=== PATIENT | female | born 1995 | race Caucasian/White ===

== ENCOUNTER 2018-02-23 08:45 | Emergency (ER) | payer OTHER ==
[~2018-02-23] VITALS: Ht 162.6 cm; Wt 54.5 kg
[~2018-02-23 08:45] MED LIST: ESCI1TAB10 PO; MULT-513 PO; OMEP20CA9 PO; ONDA4TAB10 SL
[2018-02-23] MEDS ORDERED: SODIUM CHLORIDE 0.9% 1000ML 1,000 ML IV STA (08:58)
[2018-02-23] MEDS ORDERED: ONDANSETRON INJ 2 MG/ML 2 ML VIAL IV STA (08:58)
[2018-02-23 09:22] LABS: BASO % 0.2 %; BASO ABS # 0.01 K/uL (0-0.2); HEMATOCRIT 38.1 % (37-47); IG# 0.01 K/uL (0.00-0.02); LYMPH % 15.9 %; LYMPH ABS # 0.79 K/uL (1.2-3.4); MEAN CELL VOLUME 80.7 fL (80-100); MEAN CORPUSCULAR HEMOGLOBIN 27.5 pg (25-34); MEAN CORPUSCULAR HGB CONC 34.1 g/dl (32-36); MEAN PLATELET VOLUME 9.7 fL (7.4-10.4); MONO % 8.7 %; MONO ABS # 0.43 K/uL (0.11-0.59); NEUT ABS # 3.72 K/uL (1.4-6.5); PLATELET COUNT 282 K/uL (130-400); RED CELL DISTRIBUTION WIDTH CV 14.2 % (11.5-14.5); RED CELL DISTRIBUTION WIDTH SD 42.3 fL (36.4-46.3); WHITE BLOOD COUNT 4.96 K/uL (4.8-10.8)
[2018-02-23 09:44] LABS: ALBUMIN 3.9 gm/dl (3.4-5.0); CALCIUM 9.2 mg/dl (8.5-10.1); CREATININE 0.8 mg/dl (0.60-1.20); POTASSIUM 2.8 mmol/L (3.5-5.1); TOTAL PROTEIN 8.3 gm/dl (6.4-8.2)
[2018-02-23] MEDS ORDERED: POTASSIUM CHLORIDE 10 MEQ / 100ML WTR IV STA (09:59)
[2018-02-23] MEDS ORDERED: CIPROFLOXACIN 400MG / 200ML D5W IV STA (10:21)
--- NOTE | 2018-02-23 10:30 | EMERGENCY ROOM VISIT NOTE ---
History Report prepared by Darrion: Trung Mccain Under the Supervision of: Dr. Shivam Castellanos M.D. First contact with patient: 08:53 Chief Complaint: VOMITING Stated Complaint: VOMITING, DIARRHEA History of Present Illness The patient is a 22 year old female who presents to the Emergency Room with complaints of intermittent vomiting and diarrhea beginning two days ago. She also complains of abdominal pain, cough, nausea, and subjective fevers. The patient was seen in the ED two days ago for similar symptoms and was discharged on Zofran. She states that the Zofran helped briefly, but she stopped taking it after four doses. She believes she got food poisoning from pork at a picnic she attended three days ago. The patient denies dark colored vomit, or black/bloody stool. Source of History: patient Onset: Two days ago Quality: other (vomiting and diarrhea) Timing: intermittent Associated Symptoms: + fevers (subjective), + cough, + nausea, + abdominal pain, No melena, No hematochezia Note: The patient denies dark colored vomit. Review of Systems See HPI for pertinent positives and negatives. A total of ten systems were reviewed and were otherwise negative. Past Medical & Surgical Medical Problems: (1) Acid reflux (2) Hiatal hernia (3) Intractable vomiting with nausea Family History No pertinent family history stated. Social History Smoking Status: Never Smoker Alcohol Use: occasionally Marital Status: single Housing Status: lives with family Occupation Status: employed, student Current/Historical Medications Scheduled Escitalopram Oxalate (Lexapro), 20 MG PO DAILY Multivitamins/Minerals (Mvi With Minerals), 1 TAB PO DAILY Omeprazole (Prilosec), 20 MG PO DAILY Ondasetron Odt (Zofran Odt), 4 MG SL Q6H Allergies Coded Allergies: Penicillins (Unverified Allergy, Unknown, RASH, 02/23/18) Physical Exam Vital Signs Date Time Temp Pulse Resp B/P (MAP) Pulse Ox O2 Delivery O2 Flow Rate FiO2 02/23/18 10:55 100 Room Air 02/23/18 10:21 74 02/23/18 10:18 65 20 101/60 100 Room Air 02/23/18 08:49 36.7 102 20 100/72 100 Room Air Physical Exam .pePhysical Exam GENERAL: She is oriented to person, place, and time. She appears well- developed and well-nourished. She does not appear distressed. HENT: Exam performed. Head: Normocephalic and atraumatic. Right Ear: External ear normal. No mastoid tenderness. Left Ear: External ear normal. No mastoid tenderness. Mouth/Throat: The oropharynx is clear and moist. No trismus in the jaw. No dental abscesses or uvula swelling. No oropharyngeal exudate or tonsillar abscesses. EYES: Conjunctivae and EOM are normal. Pupils are equal, round, and reactive to light. Right eye exhibits no discharge. Left eye exhibits no discharge. No scleral icterus. NECK: Normal range of motion. Neck supple. No JVD present. No spinous process tenderness present. No carotid bruit present. No rigidity. No tracheal deviation and normal range of motion present. No Brudzinski's sign and no Kernig 's sign noted. CV: Normal rate, regular rhythm, normal heart sounds and intact distal pulses. There is no peripheral edema. Palpable radial pulses bue. PULM/CHEST: Effort normal and breath sounds normal. No respiratory distress. No stridor. She has no wheezes. She has no rales. Chest Wall: She exhibits no tenderness. ABD: The abdomen is soft. Bowel sounds are normal. She has no distension. No mass is present. There is no tenderness. There is no rebound, no guarding, no Colorado's sign and no tenderness at McBurney's point. Rovsig negative MUSC/SKEL: Normal range of motion. There is no peripheral edema, tenderness or deformity. LYMPH: No cervical adenopathy. NEURO: She is alert and oriented to person, place, and time. She has normal strength. No cranial nerve deficit or sensory deficit. Coordination and gait normal. GCS eye subscore is 4. GCS verbal subscore is 5. GCS motor subscore is 6. Cerebellar tests wnl. SKIN: Skin is warm and dry. She is not diaphoretic. PSYCH: She has a normal mood and affect. Behavior is normal. Judgment and thought content normal. Medical Decision & Procedures Laboratory Results 02/23/18 09:10 Red Blood Count 4.72, Mean Corpuscular Volume 80.7, Mean Corpuscular Hemoglobin 27.5, Mean Corpuscular Hemoglobin Concent 34.1, Mean Platelet Volume 9.7, Neutrophils (%) (Auto) 75.0, Lymphocytes (%) (Auto) 15.9, Monocytes (%) (Auto) 8.7, Eosinophils (%) (Auto) 0.0, Basophils (%) (Auto) 0.2, Neutrophils # (Auto) 3.72, Lymphocytes # (Auto) 0.79, Monocytes # (Auto) 0.43, Eosinophils # (Auto) 0.00, Basophils # (Auto) 0.01 02/23/18 09:10 Test 02/23/18 09:10 02/23/18 09:50 02/23/18 11:07 White Blood Count 4.96 K/uL (4.8-10.8) Red Blood Count 4.72 M/uL (4.2-5.4) Hemoglobin 13.0 g/dL (12.0-16.0) Hematocrit 38.1 % (37-47) Mean Corpuscular Volume 80.7 fL (80-100) Mean Corpuscular Hemoglobin 27.5 pg (25-34) Mean Corpuscular Hemoglobin Concent 34.1 g/dl (32-36) Platelet Count 282 K/uL (130-400) Mean Platelet Volume 9.7 fL (7.4-10.4) Neutrophils (%) (Auto) 75.0 % Lymphocytes (%) (Auto) 15.9 % Monocytes (%) (Auto) 8.7 % Eosinophils (%) (Auto) 0.0 % Basophils (%) (Auto) 0.2 % Neutrophils # (Auto) 3.72 K/uL (1.4-6.5) Lymphocytes # (Auto) 0.79 K/uL (1.2-3.4) Monocytes # (Auto) 0.43 K/uL (0.11-0.59) Eosinophils # (Auto) 0.00 K/uL (0-0.5) Basophils # (Auto) 0.01 K/uL (0-0.2) RDW Standard Deviation 42.3 fL (36.4-46.3) RDW Coefficient of Variation 14.2 % (11.5-14.5) Immature Granulocyte % (Auto) 0.2 % Immature Granulocyte # (Auto) 0.01 K/uL (0.00-0.02) Anion Gap 11.0 mmol/L (3-11) Est Creatinine Clear Calc Drug Dose 95.7 ml/min Estimated GFR () 122.2 Estimated GFR (Non- 105.4 BUN/Creatinine Ratio 8.6 (10-20) Lactic Acid Level 1.7 mmol/L (0.4-2.0) Calcium Level 9.2 mg/dl (8.5-10.1) Magnesium Level 1.8 mg/dl (1.8-2.4) Total Bilirubin 0.6 mg/dl (0.2-1) Direct Bilirubin 0.2 mg/dl (0-0.2) Aspartate Amino Transf (AST/SGOT) 14 U/L (15-37) Alanine Aminotransferase (ALT/SGPT) 15 U/L (12-78) Alkaline Phosphatase 51 U/L (45-117) Total Protein 8.3 gm/dl (6.4-8.2) Albumin 3.9 gm/dl (3.4-5.0) Lipase 72 U/L (73-393) Urine Color DK YELLOW Urine Appearance CLOUDY (CLEAR) Urine pH 6.0 (4.5-7.5) Urine Specific [place] 1.024 (1.000-1.030) Urine Protein 1+ (NEG) Urine Glucose (UA) NEG (NEG) Urine Ketones 3+ (NEG) Urine Occult Blood 3+ (NEG) Urine Nitrite NEG (NEG) Urine Bilirubin NEG (NEG) Urine Urobilinogen NEG (NEG) Urine Leukocyte Esterase TRACE (NEG) Urine WBC (Auto) 5-10 /hpf (0-5) Urine RBC (Auto) 5-10 /hpf (0-4) Urine Hyaline Casts (Auto) /lpf (0-5) Urine Epithelial Cells (Auto) >30 /lpf (0-5) Urine Bacteria (Auto) 2+ (NEG) Urine Renal Epithelial Cells /lpf (0-5) Urine Pathogenic Casts /lpf (0) Urine Mucus PRESENT (NONE PRSENT) Urine Yeast (Auto) (NONE PRSENT) Urine Test NEG (NEG) Procalcitonin 0.15 ng/ml (0-0.5) Laboratory results reviewed by me Medications Administered Medications (Trade) Dose Ordered Sig/Angie Route Start Time Stop Time Status Last Admin Dose Admin Sodium Chloride 1,000 ml @ 999 mls/hr Q1H1M STAT IV 7/9/18 08:58 02/23/18 09:58 DC 02/23/18 09:16 999 MLS/HR Ondansetron HCl (Zofran Inj) 4 mg NOW STAT IV 02/23/18 08:58 02/23/18 09:00 DC 02/23/18 09:16 4 MG Potassium Chloride (KCL 10 mEq / WTR) 40 meq NOW STAT IV 02/23/18 09:59 02/23/18 10:00 DC 02/23/18 10:18 40 MEQ Ciprofloxacin/ Dextrose (Cipro / D5W) 400 mg NOW STAT IV 02/23/18 10:21 02/23/18 10:23 DC 02/23/18 11:25 400 MG ED Course 0854: The patient was evaluated in room A4B. A complete history and physical exam was performed. 0858: Ordered Zofran Inj 4 mg IV, Sodium Chloride 1000 ml @ 999 mls/hr IV. 0900: EMR reviewed. Patient was seen on February 21 in the ED for vomiting and diarrhea s/p eating at a picnic. Labs were within normal limits other than a potassium of 3.1. 0959: Ordered KCl 10 meq / Wtr 40 meq IV. 1017: Repeat abdominal examination within normal limits - patient has no pain on palpation. Her potassium is 2.8, and will be replaced. She refused abdominal x-ray. I received report that the picnic that the patient attended had contaminated food with Salmonella from cultures from other patients. I discussed the patient's case with Dr. Espinoza who agreed to admit the patient. The patient will be treated with Cipro for her subjective fevers and non- improving symptoms. 1021: Ordered Cipro / D5W 400 mg IV. Medical Decision 0900: EMR reviewed. Patient was seen on February 21 in the ED for vomiting and diarrhea s/p eating at a picnic. Labs were within normal limits other than a potassium of 3.1. 1017: Repeat abdominal examination within normal limits - patient has no pain on palpation. Her potassium is 2.8, and will be replaced. She refused abdominal x-ray. I received report that the picnic that the patient attended had contaminated food with Salmonella from cultures from other patients. I discussed the patient's case with Dr. Espinoza who agreed to admit the patient. The patient will be treated with Cipro for her subjective fevers and non- improving symptoms. Medication Reconcilliation Current Medication List: was personally reviewed by me Blood Pressure Screening Patient's blood pressure: Normal blood pressure Blood pressure disposition: Did not require urgent referral Consults Time Called: 1015 Consulting Physician: Dr. Alexis Raymundo [facility] [place] Hospitalist Returned Call: [phone] Discussed the patient's case. The patient will be evaluated for further treatment and disposition. Impression Primary Impression: Intractable nausea and vomiting Additional Impressions: Gastroenteritis Salmonella food poisoning Scribe Attestation The scribe's documentation has been prepared under my direction and personally reviewed by me in its entirety. I confirm that the note above accurately reflects all work, treatment, procedures, and medical decision making performed by me. The chart was completed utilizing [employer] Speech voice recognition software. Grammatical errors, random word insertions, pronoun errors, and incomplete sentences are an occasional consequence of this system due to software limitations, ambient noise, and hardware issues. Any formal questions or concerns about the content, text, or information contained within the body of this dictation should be directly addressed to the physician for clarification. Departure Information Dispostion Being Evaluated By Hospitalist Referrals No Doctor, Assigned (PCP) Patient Instructions My [facility] Problem Qualifiers
[2018-02-23 10:55] VITALS: O2SAT 100; Ht 162.6 cm; Wt 54.5 kg
--- NOTE | 2018-02-23 12:06 | History and Physical ---
History & Physical Date & Time of Service: Feb 23, 2018 at 11:45 Chief Complaint: Vomiting, Diarrhea Primary Care Physician: Megha Lynn C.R.NZana History of Present Illness Attending: Dr. Espinoza This is a 22-year-old female that [facility]. Friday at approximately 2 AM she awoke with nausea and vomiting abdominal pain. She presented the emergency department was given supportive fluids and sent home on Zofran. The nausea was controlled temporarily but vomiting persisted as well as copious amounts of diarrhea. The patient reports that she is confident there was some blood in the stool Friday. She denies any further hematochezia, melena, bright red blood per rectum. She menstruates regularly and states that she is on day 3 of her normal cycle but has had no menstrual discharge today. When asked if the blood in her stool could have been blood from her menses, she was confident that it was from her rectum. The patient has had no appetite and has not been able to eat or drink since Friday. She describes her pain as a sharp-like pain in her abdomen. This radiates into her flank and back. She denies any fever or chills. She has no diaphoresis. She has no rigors. She denies any recent travel outside of the area. 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 She denies any tobacco or ethanol use. She further denies any illicit drug use. She does report some cramping in the legs over the last 2 days. She has no reports of asymmetrical edema. Home medications include Lexapro, multivitamin, omeprazole. Patient does report that she is sexually active. Urine test is negative. She has no history of STD. She has no other acute complaints. Past Medical/Surgical History Medical Problems: Abdominal pain Enteritis Hiatal hernia Intractable vomiting with nausea History of eating disorder with residual acid reflux and vomiting Past surgical history: None Social History Smoking Status: Never Smoker Alcohol Use: none Drug Use: none Marital Status: single Housing status: lives with family Occupational Status: employed, student Immunizations History of Influenza Vaccine: Unknown History of Tetanus Vaccine?: Unknown History of Pneumococcal: Unknown History of Hepatitis B Vaccine: Unknown Allergies Coded Allergies: Penicillins (Unverified Allergy, Unknown, RASH, 02/23/18) Home Medications Scheduled Escitalopram Oxalate (Lexapro), 20 MG PO DAILY Multivitamins/Minerals (Mvi With Minerals), 1 TAB PO DAILY Omeprazole (Prilosec), 20 MG PO DAILY Ondasetron Odt (Zofran Odt), 4 MG SL Q6H Review of Systems Constitutional: + chills, + weakness, No fever, No sweats Eyes: No worsening of vision ENT: No unusual epistaxis, No trouble swallowing Respiratory: No cough, No sputum, No wheezing, No shortness of breath, No dyspnea on exertion, No hemoptysis Cardiovascular: No chest pain, No orthopnea, No edema, No palpitations Abdomen: + pain, + nausea, + vomiting, + diarrhea, No constipation, No GI bleeding Musculoskeletal: + problem reported (Cramping of the gastrocnemius muscles bilaterally), No joint pain, No muscle pain, No swelling, No calf pain Genitourinary - Female: No dysuria, No hematuria Neurologic: No paralysis, No numbness/tingling, No vertigo Psychiatric: + depression symptoms, + anxiety, No anhedonism, No insomnia, No substance abuse Endocrine: No excessive thirst, No excessive urination Hematologic / Lymphatic: + problem reported (Day 3/3 of regular menstrual cycle ), No abnormal bleeding/bruising, No night sweats Integumentary: No rash, No itch Allergic / Immunologic: No food allergies Physical Exam Vital Signs Date Time Temp Pulse Resp B/P (MAP) Pulse Ox O2 Delivery O2 Flow Rate FiO2 02/23/18 10:21 74 02/23/18 10:18 65 20 101/60 100 Room Air 02/23/18 08:49 36.7 102 20 100/72 100 Room Air GENERAL : No acute distress EYES: No icterus, gaze conjugate NOSE: No evidence of epistaxis MOUTH: No lesions or candidiasis NECK: Supple LUNGS: CTA B/L, no wheezes, rales or rhonchi HEART: Regular, rate controlled ABDOMEN: Soft, ND, BS Present. Positive guarding. Negative for rebound tenderness. Tympanic to percussion EXTREMITIES: No LE edema, pedal pulses intact NEURO: A&OX3 Diagnostics Laboratory Results Results Past 24 Hours Test 02/23/18 09:10 02/23/18 09:50 02/23/18 11:07 02/23/18 11:25 Range/Units White Blood Count 4.96 4.8-10.8 K/uL Red Blood Count 4.72 4.2-5.4 M/uL Hemoglobin 13.0 12.0-16.0 g/dL Hematocrit 38.1 37-47 % Mean Corpuscular Volume 80.7 80-100 fL Mean Corpuscular Hemoglobin 27.5 25-34 pg Mean Corpuscular Hemoglobin Concent 34.1 32-36 g/dl Platelet Count 282 130-400 K/uL Mean Platelet Volume 9.7 7.4-10.4 fL Neutrophils (%) (Auto) 75.0 % Lymphocytes (%) (Auto) 15.9 % Monocytes (%) (Auto) 8.7 % Eosinophils (%) (Auto) 0.0 % Basophils (%) (Auto) 0.2 % Neutrophils # (Auto) 3.72 1.4-6.5 K/uL Lymphocytes # (Auto) 0.79 1.2-3.4 K/uL Monocytes # (Auto) 0.43 0.11-0.59 K/uL Eosinophils # (Auto) 0.00 0-0.5 K/uL Basophils # (Auto) 0.01 0-0.2 K/uL RDW Standard Deviation 42.3 36.4-46.3 fL RDW Coefficient of Variation 14.2 11.5-14.5 % Immature Granulocyte % (Auto) 0.2 % Immature Granulocyte # (Auto) 0.01 0.00-0.02 K/uL Sodium Level 135 136-145 mmol/L Potassium Level 2.8 3.5-5.1 mmol/L Chloride Level 100 98-107 mmol/L Carbon Dioxide Level 24 21-32 mmol/L Anion Gap 11.0 3-11 mmol/L Blood Urea Nitrogen 7 7-18 mg/dl Creatinine 0.80 0.60-1.20 mg/dl Est Creatinine Clear Calc Drug Dose 95.7 ml/min Estimated GFR () 122.2 Estimated GFR (Non- 105.4 BUN/Creatinine Ratio 8.6 10-20 Random Glucose 102 70-99 mg/dl Lactic Acid Level 1.7 0.4-2.0 mmol/L Calcium Level 9.2 8.5-10.1 mg/dl Total Bilirubin 0.6 0.2-1 mg/dl Direct Bilirubin 0.2 0-0.2 mg/dl Aspartate Amino Transf (AST/SGOT) 14 15-37 U/L Alanine Aminotransferase (ALT/SGPT) 15 12-78 U/L Alkaline Phosphatase 51 45-117 U/L Total Protein 8.3 6.4-8.2 gm/dl Albumin 3.9 3.4-5.0 gm/dl Lipase 72 73-393 U/L Urine Color DK YELLOW Urine Appearance CLOUDY CLEAR Urine pH 6.0 4.5-7.5 Urine Specific [place] 1.024 1.000-1.030 Urine Protein 1+ NEG Urine Glucose (UA) NEG NEG Urine Ketones 3+ NEG Urine Occult Blood 3+ NEG Urine Nitrite NEG NEG Urine Bilirubin NEG NEG Urine Urobilinogen NEG NEG Urine Leukocyte Esterase TRACE NEG Urine WBC (Auto) 5-10 0-5 /hpf Urine RBC (Auto) 5-10 0-4 /hpf Urine Hyaline Casts (Auto) 0-5 /lpf Urine Epithelial Cells (Auto) >30 0-5 /lpf Urine Bacteria (Auto) 2+ NEG Urine Renal Epithelial Cells 0-5 /lpf Urine Pathogenic Casts 0 /lpf Urine Mucus PRESENT NONE PRSENT Urine Yeast (Auto) NONE PRSENT Urine Test NEG NEG Microbiology Results 02/23/18 Blood Culture, Received Pending 02/23/18 Blood Culture, Received Pending Impression Assessment and Plan This is a 22-year-old female that went to a picnic on Friday evening. She states that she ate pork that was left out in the sun. Friday morning she awoke at about 2 AM with abdominal pain, nausea, vomiting. She presented the ER and was sent home after supportive care with a prescription for Zofran. Her symptoms have continued to worsen and she presented again to the emergency department today. She is found to be hypokalemic with a potassium of 2.8. She also was found with acute UTI, culture is pending. Patient will be admitted for supportive care and IV antibiotics to cover Salmonella and urinary tract infection. INTRACTABLE NAUSEA AND VOMITING * Most likely neurovirus versus Salmonella versus other gastrointestinal disease with picnic etiology * Will check patient for C. difficile and is much as she is on chronic PPI * Check a pro-calcitonin * Will start patient on 3 days of ciprofloxacin to cover Salmonella as well as UTI * Will send stool to rule out neurovirus and Giardia as well as check a stool culture for parasites and food poisoning * Supportive care with IV fluids * N.p.o. for now secondary to intractable nausea and vomiting but will give ice chips. Advance diet as tolerated HYPOKALEMIA * Patient currently with a potassium level 2.8. * Will order 40 mEq of K riders * Normal saline with 40 mEq of potassium per liter to run at 1 25 mL/h * Check magnesium level * Check repeat potassium level at 1600 this day * Follow serial labs * Check an EKG for baseline URINARY TRACT INFECTION * Patient be started on ciprofloxacin for gastrointestinal infection * Although the ciprofloxacin has 83-90% effectiveness against E. coli will continue for now pending culture * No hematuria * Low suspicion for pyelonephritis as patient has no white count and no fever * If pain worsens or patient develops fever, low threshold for renal ultrasound to rule out pyelonephritis/hydronephrosis DEPRESSION/ANXIETY * Continue home dose of Lexapro GERD * Continue pantoprazole at this time * Discussed options for treatment to include H2 kiki instead of proton pump inhibitor secondary to side effects and symptoms with long-term use including C. difficile colitis * Further management by primary care physician DVT PROPHYLAXIS * Heparin subcu every 12 hours * SCDs/teds Please refer to Dr. Espinoza's addendum for further recommendations. Advanced Directives Existing Advance Directive: No Existing Living Will: No Existing Power of Varnish Maker Helper: No Existing Health Care Proxy: No Resuscitation Status VTE Prophylaxis Will order VTE Prophylaxis: Yes Reviewed: Pt Seen/Exam by Me History Physician Staffing Assistant supervision Note: I interviewed and examined the patient. Discussed with OMARI Ward and agree with findings and plan as documented in the note. Any exceptions or clarifications are listed here: Patient presented with intractable nausea, vomiting, and diarrhea, along with abdominal cramping and fevers at home for over 24 hours. This all started after eating pulled pork at a muslim picnic. There has been dozens of other patients with similar symptoms that ate the same food. Some of them tested positive for Salmonella as per report from the ER. She was hypokalemic, and could not keep anything down despite antiemetics in the ER. She is admitted for dehydration and hypokalemia likely secondary to Salmonella gastroenteritis. When I saw her, she had received copious IV fluids and her first dose of Cipro. She was already feeling much improved. She was having some heartburn in the chest that was relieved with GI cocktail Vitals reviewed Gen: AAOx3, NAD, thin HEENT: anicteric sclerae, EOMI CV: RRR no mgr nl S1S2 Pulm: CTAB no wcr Abd: +BS soft NT ND no masses or hernias Ext: no edema, 2+ DP pulses Skin: no rashes, warm/dry Neuro: full strength throughout 22-year-old girl with history of anorexia nervosa, GERD, anxiety disorder, here with intractable nausea, vomiting, diarrhea secondary to likely foodborne gastroenteritis-probable Salmonella. -Continue IV fluids -Continue potassium replacement -Continue Cipro and changed to p.o. 500 mg p.o. twice daily 3 days when tolerating p.o. -Advance diet as tolerated -GI cocktail for heartburn and IV Zantac started Documented By: Altagracia Espinoza
[2018-02-23 12:26] VITALS: O2SAT 100
[2018-02-23] MEDS ORDERED: IV FLUIDS COMPLETED PRN (12:30)
[2018-02-23] MEDS ORDERED: POTASSIUM CHLORIDE 10 MEQ / 100ML WTR ONE (12:32)
[2018-02-23 13:07] VITALS: BP 98/61; PULSE 70; TEMP 37.1; O2SAT 100
[2018-02-23] MEDS ORDERED: PROMETHAZINE HCL INJ 12.5 MG in SODIUM CHLORIDE 0.9% 50ML 50 ML IV ONE (13:30)
[2018-02-23] MEDS ORDERED: POTASSIUM CHLR 10 MEQ / WTR 100 ML IV SCH (14:00)
[2018-02-23 14:03] LABS: INR 1.2 (0.9-1.1)
[2018-02-23] MEDS: POTASSIUM CHLORIDE INJ 40 MEQ in SODIUM CHLORIDE 0.9% 1000ML 1,000 ML IV SCH ×2 (14:28→22:59)
[2018-02-23 15:50] VITALS: BP 105/67; PULSE 78; TEMP 37.6; O2SAT 99
[2018-02-23] MEDS ORDERED: MoRPHine SULFATE 4 MG/ML 1 ML CARP\\VIAL ONE (16:58)
[2018-02-23] MEDS ORDERED: MoRPHine SULFATE 4 MG/ML 1 ML CARP\\VIAL IV PRN (17:00)
[2018-02-23] MEDS ORDERED: NURSING VERBAL MED ORDER ONE ×3 (17:00→21:00)
[2018-02-23] MEDS: ONDANSETRON INJ 2 MG/ML 2 ML VIAL IV PRN (17:01)
[2018-02-23] MEDS ORDERED: RANITIDINE IV 50 MG in DEXTROSE 5% 100ML 100 ML IV SCH (18:30)
[2018-02-23] MEDS ORDERED: ALUMINUM/MAGNESIUM SUSP 18 ML, LIDOCAINE HCL 2% VISCOUS SOLN 6 ML, BARCODE IDENTIFIER 1 EA PO ONE ×2 (18:30)
[2018-02-23] MEDS: HEPARIN SOD 5000 UNIT/0.5 ML CARP SQ SCH (19:03)
[2018-02-23] MEDS: POTASSIUM CHLR 10 MEQ / WTR 100 ML IV SCH ×2 (21:33→22:59)
[2018-02-23] MEDS: KETOROLAC TROMETHAMINE 15 MG/ML VIAL IV. PRN (21:33)
[2018-02-23] MEDS: PROMETHAZINE HCL INJ 12.5 MG in SODIUM CHLORIDE 0.9% 50ML 50 ML IV PRN (21:46)
[2018-02-24 00:18] VITALS: BP 99/61; PULSE 57; TEMP 37.1; O2SAT 99
[2018-02-24] MEDS: CIPROFLOXACIN / D5W 400 MG in PREMIXED IN D5W 200 ML IV SCH ×3 (00:19→23:54)
[2018-02-24] MEDS: HEPARIN SOD 5000 UNIT/0.5 ML CARP SQ SCH ×3 (01:50→18:00)
[2018-02-24] MEDS: ONDANSETRON INJ 2 MG/ML 2 ML VIAL IV PRN (02:58)
[2018-02-24] MEDS: PROMETHAZINE HCL INJ 12.5 MG in SODIUM CHLORIDE 0.9% 50ML 50 ML IV PRN (05:11)
[2018-02-24] MEDS: RANITIDINE IV 50 MG in DEXTROSE 5% 100ML 100 ML IV SCH ×3 (06:13→22:16)
[2018-02-24] MEDS: POTASSIUM CHLORIDE INJ 40 MEQ in SODIUM CHLORIDE 0.9% 1000ML 1,000 ML IV SCH ×3 (06:13→22:14)
[2018-02-24 06:21] LABS: BASO % 0.3 %; BASO ABS # 0.01 K/uL (0-0.2); EOS % 0.6 %; EOS ABS # 0.02 K/uL (0-0.5); HEMATOCRIT 29.9 % (37-47); HEMOGLOBIN 9.8 g/dL (12.0-16.0); LYMPH % 32.1 %; LYMPH ABS # 1.04 K/uL (1.2-3.4); MEAN CELL VOLUME 83.1 fL (80-100); MEAN CORPUSCULAR HEMOGLOBIN 27.2 pg (25-34); MEAN CORPUSCULAR HGB CONC 32.8 g/dl (32-36); MEAN PLATELET VOLUME 10.1 fL (7.4-10.4); MONO % 18.5 %; NEUT % 48.5 %; NEUT ABS # 1.57 K/uL (1.4-6.5); PLATELET COUNT 202 K/uL (130-400); RED CELL DISTRIBUTION WIDTH CV 14.7 % (11.5-14.5); RED CELL DISTRIBUTION WIDTH SD 44.6 fL (36.4-46.3); WHITE BLOOD COUNT 3.24 K/uL (4.8-10.8)
[2018-02-24 06:50] LABS: BLOOD UREA NITROGEN 5 mg/dl (7-18); CREATININE 0.55 mg/dl (0.60-1.20); GLUCOSE 92 mg/dl (70-99)
[2018-02-24 06:51] LABS: CALCIUM 7.8 mg/dl (8.5-10.1); CARBON DIOXIDE 21 mmol/L (21-32); SODIUM 141 mmol/L (136-145)
[2018-02-24] MEDS: ESCITALOPRAM OXALATE 20 MG TAB PO SCH (07:45)
[2018-02-24] MEDS: PANTOprazole SOD 40 MG TAB PO SCH (07:46)
[2018-02-24] MEDS: CEROVITE ADV FORMULA TAB PO SCH (07:47)
[2018-02-24] MEDS: KETOROLAC TROMETHAMINE 15 MG/ML VIAL IV. PRN (07:51)
[2018-02-24 08:03] VITALS: BP 98/60; PULSE 52; TEMP 36.6; O2SAT 100
[2018-02-24 12:08] LABS: HEMATOCRIT 31.5 % (37-47); HEMOGLOBIN 10.3 g/dL (12.0-16.0)
[2018-02-24 16:33] VITALS: BP 107/71; PULSE 55; TEMP 37.2; O2SAT 99
--- NOTE | 2018-02-24 20:27 | Hospitalist Progress Note ---
Hospitalist Progress Note Date of Service Feb 24, 2018. Subjective Pt evaluation today including: conversation w/ patient Still having 20+ BMs today, nonbloody, Nausea stil comes and goes but not as bad today. Kept down clears for lunch and dinner, but still having some crampy abd pain. Constitutional: No fever, No chills Respiratory: No shortness of breath Cardiovascular: No chest pain Musculoskeletal: No muscle pain All Other Systems: Reviewed and Negative Objective Vital Signs Date Time Temp Pulse Resp B/P (MAP) Pulse Ox O2 Delivery O2 Flow Rate FiO2 02/24/18 16:33 37.2 55 16 107/71 (83) 99 Room Air 02/24/18 16:00 Room Air 02/24/18 08:03 36.6 52 16 98/60 (73) 100 Room Air 02/24/18 07:55 Room Air 02/24/18 00:18 37.1 57 20 99/61 (74) 99 Room Air 02/24/18 00:00 Room Air Physical Exam General Appearance: no apparent distress, + thin Eyes: normal inspection, sclerae normal ENT: hearing grossly normal, pharynx normal Neck: trachea midline Respiratory/Chest: lungs clear, normal breath sounds, no respiratory distress, no accessory muscle use Cardiovascular: regular rate, rhythm, no edema, no murmur Abdomen: normal bowel sounds, non tender, soft Extremities: non-tender, normal inspection, no pedal edema, no calf tenderness Neurologic/Psychiatric: alert, normal mood/affect, oriented x 3 Skin: normal color, warm/dry, no rash Laboratory Results Last 24 Hours Test 02/24/18 05:52 02/24/18 11:59 White Blood Count 3.24 K/uL Red Blood Count 3.60 M/uL Hemoglobin 9.8 g/dL 10.3 g/dL Hematocrit 29.9 % 31.5 % Mean Corpuscular Volume 83.1 fL Mean Corpuscular Hemoglobin 27.2 pg Mean Corpuscular Hemoglobin Concent 32.8 g/dl Platelet Count 202 K/uL Mean Platelet Volume 10.1 fL Neutrophils (%) (Auto) 48.5 % Lymphocytes (%) (Auto) 32.1 % Monocytes (%) (Auto) 18.5 % Eosinophils (%) (Auto) 0.6 % Basophils (%) (Auto) 0.3 % Neutrophils # (Auto) 1.57 K/uL Lymphocytes # (Auto) 1.04 K/uL Monocytes # (Auto) 0.60 K/uL Eosinophils # (Auto) 0.02 K/uL Basophils # (Auto) 0.01 K/uL RDW Standard Deviation 44.6 fL RDW Coefficient of Variation 14.7 % Immature Granulocyte % (Auto) 0.0 % Immature Granulocyte # (Auto) 0.00 K/uL Sodium Level 141 mmol/L Potassium Level 4.0 mmol/L Chloride Level 112 mmol/L Carbon Dioxide Level 21 mmol/L Anion Gap 8.0 mmol/L Blood Urea Nitrogen 5 mg/dl Creatinine 0.55 mg/dl Est Creatinine Clear Calc Drug Dose 139.2 ml/min Estimated GFR () > 150.0 Estimated GFR (Non- 134.1 BUN/Creatinine Ratio 8.7 Random Glucose 92 mg/dl Calcium Level 7.8 mg/dl Magnesium Level 1.9 mg/dl Assessment and Plan 22-year-old girl with history of anorexia nervosa, GERD, anxiety disorder, here with intractable nausea, vomiting, diarrhea secondary to likely foodborne gastroenteritis-probable Salmonella. With hypokalemia on admission, now resolved after replacement. She does NOT have a UTI-UA contaminated on admission Continues with nausea but improving. Continues with innumerable BMs daily, some abd cramping. No fevers -Continue IV fluids -Continue potassium replacement as needed -Continue IV Cipro and change to p.o. 500 mg p.o. twice daily 7 days when tolerating p.o. -Advance diet as tolerated-remain on clears for now GERD -GI cocktail for heartburn and IV Zantac continue Depression/Eating disorder-stable -continue Lexapro Hopeful for dc to home tomorrow if improved
[2018-02-24 23:38] VITALS: BP 99/66; PULSE 66; TEMP 37; O2SAT 99
[2018-02-25] MEDS: HEPARIN SOD 5000 UNIT/0.5 ML CARP SQ SCH ×2 (01:31→09:37)
[2018-02-25] MEDS: POTASSIUM CHLORIDE INJ 40 MEQ in SODIUM CHLORIDE 0.9% 1000ML 1,000 ML IV SCH (06:02)
[2018-02-25] MEDS: RANITIDINE IV 50 MG in DEXTROSE 5% 100ML 100 ML IV SCH (06:02)
[2018-02-25 06:58] LABS: BASO % 0.9 %; BASO ABS # 0.03 K/uL (0-0.2); EOS ABS # 0.14 K/uL (0-0.5); HEMATOCRIT 35.7 % (37-47); HEMOGLOBIN 11.6 g/dL (12.0-16.0); IG# 0.01 K/uL (0.00-0.02); LYMPH % 45.8 %; MEAN CORPUSCULAR HGB CONC 32.5 g/dl (32-36); MEAN PLATELET VOLUME 10.3 fL (7.4-10.4); MONO % 16.9 %; MONO ABS # 0.59 K/uL (0.11-0.59); NEUT % 32.1 %; NEUT ABS # 1.12 K/uL (1.4-6.5); PLATELET COUNT 253 K/uL (130-400); RED CELL DISTRIBUTION WIDTH CV 14.7 % (11.5-14.5); RED CELL DISTRIBUTION WIDTH SD 44.6 fL (36.4-46.3); WHITE BLOOD COUNT 3.49 K/uL (4.8-10.8)
[2018-02-25] MEDS: ESCITALOPRAM OXALATE 20 MG TAB PO SCH (07:34)
[2018-02-25] MEDS: CEROVITE ADV FORMULA TAB PO SCH (07:34)
[2018-02-25] MEDS: PANTOprazole SOD 40 MG TAB PO SCH (07:34)
[2018-02-25 07:37] LABS: BLOOD UREA NITROGEN 2 mg/dl (7-18); CREATININE 0.54 mg/dl (0.60-1.20); GLUCOSE 106 mg/dl (70-99)
[2018-02-25 07:38] LABS: CALCIUM 8.4 mg/dl (8.5-10.1); CARBON DIOXIDE 24 mmol/L (21-32); POTASSIUM 3.9 mmol/L (3.5-5.1); SODIUM 139 mmol/L (136-145)
[2018-02-25 07:40] VITALS: BP 105/68; PULSE 56; TEMP 36.6; O2SAT 100
[2018-02-25] MEDS ORDERED: SACC250C3 PO (10:48)
[2018-02-25] MEDS ORDERED: CIPR-255 PO (10:48)
--- NOTE | 2018-02-25 11:01 | Discharge Instructions ---
Discharge Instructions Date of Service Feb 25, 2018. Admission Reason for Admission: Severe Diarrhea, Vomiting, Nausea Discharge Discharge Diagnosis / Problem: Salmonella Infection Discharge Goals Goal(s): Learn about illness, Diagnostic testing, Therapeutic intervention Activity Recommendations Activity Limitations: as noted below As you recover from your illness please take it easy over the next 3-4 days. Recommend avoiding strenuous activities (going to the gym, working in the yard, etc) during this time period. With respect to volunteer work -- I would only resume such if your diarrhea is nearly resolved and you are eating/drinking well. . Instructions / Follow-Up Instructions / Follow-Up From Dr. Manzano - You were diagnosed with salmonella infection as the cause of your vomiting and diarrhea. The infection typically lasts about 1 week. The most important thing to do after discharge is to maintain good hydration as you continue to recover from the illness. At this time I recommend the following - 1. ciprofloxacin (cipro) 500mg twice a day for 5 days starting TONIGHT. This is the antibiotic for your salmonella infection. This was called to [facility] for you. 2. probiotic capsule once a day for 7 days. This may help your stools normalize a little faster. Try to take the probiotic at a different time than the cipro. This was called to [facility] for you. 3. zofran (ondansetron) every 6-8 hours as needed for nausea. This medication was previously prescribed to you from the emergency room. 4. diet - please follow a clear-liquid diet today (jello, gatorade/poweraide, juices, chicken broth, popcicles, etc). As you get into later tonight/tomorrow AM you can gradually increase the number of solids into your diet as well as dairy products (would avoid ice cream, however). Some people follow the "BRAT" diet as they begin to introduce solids back into the diet. The "BRAT" stands for bananas, rice, applesauce, and toast. These are easy to digest and usually well-tolerated. I would avoid high-fiber foods until the illness is completely resolved. High fiber foods include excessive amounts of fruits/veggies, beans, certain cereals , etc. Avoid spicy foods, fried foods, fast foods, etc. Again the most important thing over the next 2-3 days is to stay hydrated. If your urine is concentrated/dark in color then you need more fluids. 5. practice good hygiene by frequently washing your hands with soap and water for minimum of 20 seconds each time. 6. please avoid having visitors to your home until your symptoms are fully resolved. 7. follow-up - * see [facility] within 1 week as scheduled 8. Return to [facility] if - * you are concerned you are dehydrated * you are having vomiting that is not responding to your anti-nausea medication * your diarrhea gets worse rather than better * you are seeing large amounts of blood in the stool * you develop recurrent fevers over 100.5 degrees * any other concerns Current Hospital Diet Patient's current hospital diet: Clear Liquid Diet Discharge Diet Recommended Diet: Clear Liquid Diet Procedures Procedures Performed: stool culture showing salmonella Pending Studies Studies pending at discharge: no Medical Emergencies . Who to Call and When: Medical Emergencies: If at any time you feel your situation is an emergency, please call 911 immediately. . Non-Emergent Contact Non-Emergency issues call your: Primary Care Provider Call Non-Emergent contact if: temperature is above 100.5, your pain is not controlled, your pain is worsening, your pain is unusual for you, your pain is concerning you, you have any medication questions . . "Provider Documentation" section prepared by Lio Manzano. .
[2018-02-25 11:08] VITALS: BP 105/68; PULSE 56; TEMP 36.6; O2SAT 100
--- NOTE | 2018-02-26 05:49 | Discharge Summary ---
Discharge Summary Date of Service Feb 26, 2018. Discharge Summary Admission Date: Feb 23, 2018 at 11:40 Discharge Date: Feb 25, 2018 Discharge Disposition: Home Principal Diagnosis: salmonella enteritis Problems/Secondary Diagnoses: hypokalemia - resolved Immunizations: Have You Had Influenza Vaccine: Unknown History of Tetanus Vaccine?: Unknown History of Pneumococcal: Unknown History of Hepatitis B Vaccine: Unknown Medication Reconciliation New Medications: Ciprofloxacin Hcl (Cipro) 500 Mg Tab 500 MG PO BID for 5 Days, #10 TAB 0 Refills Saccharomyces Boulardii (Florastor) 250 Mg Cap 250 MG PO DAILY for 7 Days, #7 CAP 0 Refills Continued Medications: Escitalopram Oxalate (Lexapro) 20 Mg Tab 20 MG PO DAILY, TAB Multivitamins/Minerals (Mvi With Minerals) Tab 1 TAB PO DAILY, TAB Omeprazole (Prilosec) 20 Mg Cap 20 MG PO DAILY, CAP Ondasetron Odt (Zofran Odt) 4 Mg Tab 4 MG SL Q6H for Nausea, #15 TAB Discharge Exam Physical Exam: General Appearance: WD/WN, no apparent distress ENT: pharynx normal Neck: no JVD Respiratory/Chest: lungs clear, no respiratory distress, no accessory muscle use Cardiovascular: regular rate, rhythm, no gallop, no murmur, normal peripheral pulses Abdomen / GI: normal bowel sounds, non tender, soft, no organomegaly Extremities: no pedal edema Neurologic/Psychiatric: alert, oriented x 3 Skin: no rash Hospital Course HISTORY OF PRESENT ILLNESS: This is a 22-year-old [facility] [employer]. Friday at approximately 2 AM she awoke with nausea, vomiting, and abdominal pain. She presented to the emergency department and was given supportive fluids and sent home on Zofran. The nausea was controlled temporarily but vomiting persisted as well as copious amounts of diarrhea. The patient reported that she was confident there was some blood in the stool Friday. She menstruates regularly and states that she is on day 3 of her normal cycle but had had no menstrual discharge today. The patient reported no appetite and had not been able to eat or drink since Friday morning. She described her pain as a sharp-like pain in her abdomen. This radiated into her flank and back. She denied any fever or chills. She had no diaphoresis. She had no rigors. She denied any recent travel outside of the area. It turns out that 50-100 people were sicked with an enteritis who had attended the same picnic. Multiple people have been diagnosed with salmonella. HOSPITAL COURSE: The patient's stool culture was ultimately positive for salmonella during this stay. Blood cultures remained negative. She was initiated on cipro for her severe enteritis. She was given IV hydration and electrolyte abnormalities were corrected. Clear liquid diet was tolerated without persistent nausea or vomiting. Her diarrhea initially was quite severe but improved prior to discharge with cipro & supportive care measures. The patient was given instructions on diet advancement, good handwashing, and prevention of spread of this illness. She will complete a 5-day course of cipro after discharge. Total Time Spent: Less than 30 minutes This includes examination of the patient, discharge planning, medication reconciliation, and communication with other providers. Discharge Instructions Please refer to the electronic Patient Visit Report (Discharge Instructions) for additional information. Follow-Up Dr. Lynn Montelongo on FridayMarch 02 at 2:10 pm. Additional Copies To Megha Lynn, MarelyR.N.P.; [place]. Montelongo MD
== END 2018-02-25 12:10 | disposition home or self-care (01) ==
LOC: C.EDB 08:46 → C.MED 11:40 → ENRESERV 12:20 → C.MS4W 19:22
PROVIDERS: ADMIT Family Medicine; ATTEND Internal Medicine
DX: A02.0 Salmonella enteritis (principal); E87.6 Hypokalemia; Z79.899 Other long term (current) drug therapy; Z88.0 Allergy status to penicillin